=== PATIENT | female | born 1990 | race Two or more races ===

== ENCOUNTER → 2024-08-16 | Outpatient (CLI) | payer OTHER, SELFPAY ==
--- NOTE | 2024-08-16 13:38 | XR_ITS ---
Examination: Lumbar spine, 5 views Technique: Lumbar spine AP, lateral, coned lateral lower lumbar spine, bilateral obliques 5 views Exam date and time: August 05, 2024 1243 hrs. Indications: Patient fell 2 with injury to lower back, lower back pain. Findings: Satisfactory alignment lumbar vertebral bodies. No lumbar fracture. Mild degenerative disc disease [id number] Impression: No lumbar fracture
--- NOTE | 2024-08-16 13:38 | XR_ITS ---
EXAMINATION: Cervical spine, 5 views Technique: Cervical spine AP, AP odontoid, lateral, bilateral obliques, 5 views Exam date and time: August 16, 20242022 hrs. Indications: Patient fell today with injury to the neck, neck pain Findings: No acute fracture No cervical disc narrowing Intact odontoid Impression: No cervical fracture
== END | disposition home or self-care (01) ==
PROVIDERS: PCP Family Medicine; Referring Provider Family Medicine; Visit Provider Family Medicine
DX: S33.5XXA Sprain of ligaments of lumbar spine, initial encounter (principal); S13.4XXA Sprain of ligaments of cervical spine, initial encounter; W19.XXXA Unspecified fall, initial encounter
CPT/HCPCS: 72050; 72110